=== PATIENT | male | born 1975 | race Caucasian/White ===

== ENCOUNTER 2020-04-27 18:45 | Inpatient (IN) | payer SELFPAY ==
[2020-04-27 19:17] VITALS: BMI 33.3
[2020-04-27] MEDS ORDERED: LORazepam 2 MG/ML SDV VIAL IVPUSH ONE (20:59)
[2020-04-27] MEDS ORDERED: LORazepam 2 MG/ML SDV VIAL ONE (21:11)
[2020-04-27 21:31] LABS: BASO % 1.1 % (0-2.0); EOS % 1.6 % (0-4.5); HEMATOCRIT 27.5 % (35.4-49); HEMOGLOBIN 8.7 GM/dL (11.7-16.9); LYMPH % 17.3 % (8-40); MCH 23.9 pg (25.7-33.7); MCHC 31.5 g/dl (32.0-35.9); MEAN CELL VOLUME 75.9 fl (80-96); MEAN PLT VOLUME 8.7 fl (7.5-11.1); MONO % 11.8 % (3.8-10.2); NEUT % 68.2 % (42.8-82.8); PLATELET COUNT 48 K/MM3 (134-434); RBC 3.62 M/mm3 (4.00-5.60); RDW 20.6 % (11.9-15.9); WHITE BLOOD COUNT 4.8 K/mm3 (4.0-10.0)
[2020-04-27 21:39] LABS: INR 1.38 (0.83-1.09); PROTHROMBIN TIME (PATIENT) 16.6 SEC (9.7-13.0)
[2020-04-27 21:56] LABS: CHLORIDE 101 mmol/L (98-107); SODIUM 136 mmol/L (136-145)
[2020-04-27 21:59] LABS: ALBUMIN 3.6 g/dl (3.4-5.0); CALCIUM 8.9 mg/dL (8.5-10.1); CO2 26 mmol/L (21-32)
[2020-04-27 22:00] LABS: BLOOD UREA NITROGEN 7.6 mg/dL (7-18); GLUCOSE,RANDOM 93 mg/dL (74-106)
[2020-04-27 22:03] LABS: CREATININE 0.8 mg/dL (0.55-1.3); SGOT/AST 136 U/L (15-37); SGPT/ALT 58 U/L (13-61)
[2020-04-27 22:04] LABS: BILIRUBIN,TOTAL 3.8 mg/dL (0.2-1); TOT PROT 8.2 g/dl (6.4-8.2)
[2020-04-27 22:05] LABS: ALK PHOS 92 U/L (45-117)
[2020-04-27 22:17] LABS: ANISOCYTOSIS 2+; MACROCYTOSIS 0; PLATELET ESTIMATE DECREASED; TARGET CELLS 1+
[2020-04-27 22:31] LABS: ANION GAP 9 MMOL/L (8-16)
[2020-04-27 22:32] LABS: POTASSIUM 2.8 mmol/L (3.5-5.1)
[2020-04-27] MEDS ORDERED: POTASSIUM CHLORIDE TABS 20 MEQ TABLET.ER (FP) PO ONE ×2 (22:33→22:35)
[2020-04-27] MEDS ORDERED: LACTATED RINGERS SOLUTION 1000 ML INFUS.BAG IV ONE (22:34)
[2020-04-28] MEDS ORDERED: LORazepam 2 MG/ML SDV VIAL IVPUSH ONE (00:02)
[2020-04-28] MEDS ORDERED: chlordiazePOXIDE HCL 25 MG CAPSULE PO ONE (00:10)
[2020-04-28] MEDS ORDERED: LORazepam 2 MG/ML SDV VIAL ONE (00:12)
[2020-04-28] MEDS ORDERED: chlordiazePOXIDE HCL 25 MG CAPSULE ONE ×2 (00:12→14:20)
[2020-04-28] MEDS ORDERED: POTASSIUM CHLORIDE TABS 10 MEQ TABLET.ER (FP) PO ONE (01:08)
[2020-04-28 01:09] LABS: MAGNESIUM 1.3 mg/dL (1.8-2.4)
[2020-04-28] MEDS ORDERED: MAGNESIUM SULF 50% (8.12 MEQ/2 ML-1 GM VIAL) IVPB ONE (01:10)
[2020-04-28] MEDS ORDERED: FOLIC ACID INJECTION - 1 MG, THIAMINE HCL 100 MG, MULTIVIT INJECTION ADULT 10 ML in SOD... IVPB ONE (01:11)
[2020-04-28] MEDS ORDERED: LORazepam 2 MG/ML SDV VIAL IVPUSH PRN (01:11)
[2020-04-28] MEDS ORDERED: THIAMINE HCL 200 MG/2 ML VIAL IVPB ONE (01:12)
[2020-04-28] MEDS ORDERED: POTASSIUM CHLORIDE TABS 20 MEQ TABLET.ER (FP) PO ONE ×2 (02:04→13:25)
[2020-04-28] MEDS ORDERED: THIAMINE HCL 200 MG/2 ML VIAL ONE (02:04)
[2020-04-28] MEDS ORDERED: KCL 10 MEQ IVPB 10 MEQ/100 ML INFUS.BAG IVPB ONE ×2 (02:04→03:45)
[2020-04-28] MEDS ORDERED: MAGNESIUM SULFATE IN WATER 2 GM/50 ML IVPB IVPB ONE ×3 (02:04→13:59)
[2020-04-28] MEDS: KCL 10 MEQ IVPB 10 MEQ/100 ML INFUS.BAG IVPB SCH ×2 (02:15→03:52)
[2020-04-28 11:12] LABS: EOS % 2.8 % (0-4.5); HEMATOCRIT 26.7 % (35.4-49); HEMOGLOBIN 8.4 GM/dL (11.7-16.9); LYMPH % 16.9 % (8-40); MCH 23.8 pg (25.7-33.7); MCHC 31.4 g/dl (32.0-35.9); MEAN CELL VOLUME 75.8 fl (80-96); MEAN PLT VOLUME 8.4 fl (7.5-11.1); MONO % 10.1 % (3.8-10.2); NEUT % 69.2 % (42.8-82.8); PLATELET COUNT 52 K/MM3 (134-434); RBC 3.53 M/mm3 (4.00-5.60); RDW 20.5 % (11.9-15.9); WHITE BLOOD COUNT 4.4 K/mm3 (4.0-10.0)
[2020-04-28 11:30] LABS: POTASSIUM 3.2 mmol/L (3.5-5.1)
[2020-04-28 11:35] LABS: BLOOD UREA NITROGEN 7.3 mg/dL (7-18)
[2020-04-28 11:37] LABS: PHOSPHOROUS 3.8 mg/dL (2.5-4.9)
[2020-04-28 11:38] LABS: CREATININE 0.7 mg/dL (0.55-1.3)
[2020-04-28 11:39] LABS: BILIRUBIN,TOTAL 3.9 mg/dL (0.2-1); MAGNESIUM 0.4 mg/dL (1.8-2.4); TOT PROT 7.7 g/dl (6.4-8.2)
[2020-04-28 12:00] LABS: ALBUMIN 3.4 g/dl (3.4-5.0); CALCIUM 8.6 mg/dL (8.5-10.1)
[2020-04-28] MEDS: FOLIC ACID 1 MG TABLET (FP) PO SCH (12:17)
[2020-04-28] MEDS: LACTATED RINGERS SOLUTION 1,000 ML/1,000 ML INFUS.BAG IV SCH (12:17)
[2020-04-28] MEDS: THIAMINE HCL 100 MG TABLET (FP) PO SCH (12:18)
[2020-04-28] MEDS ORDERED: THIAMINE HCL 100 MG TABLET (FP) ONE (12:26)
[2020-04-28] MEDS ORDERED: FOLIC ACID 1 MG TABLET (FP) ONE (12:27)
[2020-04-28] MEDS: POTASSIUM CHLORIDE TABS 20 MEQ TABLET.ER (FP) PO SCH ×2 (13:34→17:29)
[2020-04-28] MEDS: MAGNESIUM SULF 50% (8.12 MEQ/2 ML-1 GM VIAL) IVPB SCH ×2 (13:34→15:15)
[2020-04-28] MEDS: chlordiazePOXIDE HCL 25 MG CAPSULE PO PRN ×2 (14:26→21:16)
[2020-04-28] MEDS: LACTULOSE 20 GM/30 ML UDC (FOR ORAL USE ONLY) PO SCH (21:23)
[2020-04-28 22:01] LABS: POTASSIUM 3.8 mmol/L (3.5-5.1)
[2020-04-28 22:04] LABS: CALCIUM 8.1 mg/dL (8.5-10.1); MAGNESIUM 1.6 mg/dL (1.8-2.4)
[2020-04-28 22:06] LABS: CREATININE 0.8 mg/dL (0.55-1.3); PHOSPHOROUS 3.4 mg/dL (2.5-4.9)
[2020-04-29 03:01] LABS: URINE APPEARANCE CLEAR; URINE BILIRUBIN NEGATIVE (NEGATIVE); URINE COLOR YELLOW; URINE GLUCOSE (UA) NEGATIVE (NEGATIVE); URINE KETONE NEGATIVE (NEGATIVE); URINE LEUK ESTERASE NEGATIVE (NEGATIVE); URINE NITRITE NEGATIVE (NEGATIVE); URINE PROTEIN NEGATIVE (NEGATIVE)
[2020-04-29 04:13] LABS: COCAINE, UR NEGATIVE ng/ml (CUTOFF=300); METHADONE, UR NEGATIVE ng/ml (CUTOFF=300); OPIATES, URI NEGATIVE ng/ml (CUTOFF=300); URINE AMPHETAMINES NEGATIVE ng/ml (CUTOFF=500)
[2020-04-29 04:14] LABS: PHENCYCLIDINE,URINE NEGATIVE ng/ml (CUTOFF=25)
[2020-04-29 04:15] LABS: URINE BARBITURATES NEGATIVE ng/ml (CUTOFF=200)
[2020-04-29 04:28] LABS: URINE BENZODIAZEPINES POSITIVE ng/ml (CUTOFF=200)
[2020-04-29 08:48] LABS: BASO % 0.9 % (0-2.0); HEMATOCRIT 26.9 % (35.4-49); HEMOGLOBIN 8.5 GM/dL (11.7-16.9); LYMPH % 23.7 % (8-40); MCH 24.1 pg (25.7-33.7); MCHC 31.5 g/dl (32.0-35.9); MEAN CELL VOLUME 76.7 fl (80-96); MEAN PLT VOLUME 8.6 fl (7.5-11.1); MONO % 14.1 % (3.8-10.2); NEUT % 58.3 % (42.8-82.8); PLATELET COUNT 63 K/MM3 (134-434); RBC 3.51 M/mm3 (4.00-5.60); RDW 20.4 % (11.9-15.9); WHITE BLOOD COUNT 4.7 K/mm3 (4.0-10.0)
[2020-04-29 08:55] LABS: INR 1.38 (0.83-1.09); PROTHROMBIN TIME (PATIENT) 16.6 SEC (9.7-13.0)
[2020-04-29 09:17] LABS: CALCIUM 8.2 mg/dL (8.5-10.1)
[2020-04-29 09:18] LABS: ALBUMIN 3.3 g/dl (3.4-5.0); BLOOD UREA NITROGEN 10.7 mg/dL (7-18); MAGNESIUM 1.4 mg/dL (1.8-2.4)
[2020-04-29 09:21] LABS: CREATININE 0.7 mg/dL (0.55-1.3); PHOSPHOROUS 3.6 mg/dL (2.5-4.9)
[2020-04-29 09:22] LABS: BILIRUBIN,TOTAL 3.1 mg/dL (0.2-1); TOT PROT 7.6 g/dl (6.4-8.2)
[2020-04-29 09:23] LABS: POTASSIUM 3.5 mmol/L (3.5-5.1)
[2020-04-29] MEDS ORDERED: LACTATED RINGERS SOLUTION 1,000 ML/1,000 ML INFUS.BAG IV SCH (10:00)
[2020-04-29] MEDS ORDERED: PT OWN MED DRAWER 7, Y5N ONE ×2 (12:04→15:12)
[2020-04-29] MEDS ORDERED: MAGNESIUM OXIDE 400 MG TABLET (FP) PO ONE (14:10)
[2020-04-29] MEDS: LACTULOSE 20 GM/30 ML UDC (FOR ORAL USE ONLY) PO SCH ×2 (15:14→21:54)
[2020-04-29] MEDS: THIAMINE HCL 100 MG TABLET (FP) PO SCH (15:14)
[2020-04-29] MEDS: LACTATED RINGERS SOLUTION 1,000 ML/1,000 ML INFUS.BAG IV SCH (15:15)
[2020-04-29] MEDS: FOLIC ACID 1 MG TABLET (FP) PO SCH (15:15)
[2020-04-29] MEDS ORDERED: BISACODYL 5 MG TABLET.DR (FP) PO ONE (16:27)
[2020-04-29] MEDS ORDERED: PEG 3350/NA SULF BICARB CL/KCL 4000 ML SOLN.RECON PO ONE (16:29)
[2020-04-29] MEDS ORDERED: IRON SUCROSE INJECTION 200 MG in SODIUM CHLORIDE 90 ML IVPB ONE (18:30)
[2020-04-29] MEDS: MAGNESIUM OXIDE 400 MG TABLET (FP) PO SCH (21:54)
[2020-04-29] MEDS: FERROUS SO4 325 MG TABLET (FP) PO SCH (21:55)
[2020-04-30 05:22] LABS: HEP B CORE AB, TOT Negative (Negative)
[2020-04-30 08:30] LABS: BASO % 1.2 % (0-2.0); EOS % 2.3 % (0-4.5); HEMATOCRIT 27.9 % (35.4-49); HEMOGLOBIN 8.8 GM/dL (11.7-16.9); LYMPH % 21.5 % (8-40); MCH 24.3 pg (25.7-33.7); MCHC 31.7 g/dl (32.0-35.9); MEAN CELL VOLUME 76.7 fl (80-96); MEAN PLT VOLUME 8.4 fl (7.5-11.1); MONO % 13.6 % (3.8-10.2); NEUT % 61.4 % (42.8-82.8); PLATELET COUNT 78 K/MM3 (134-434); RBC 3.64 M/mm3 (4.00-5.60); WHITE BLOOD COUNT 4.7 K/mm3 (4.0-10.0)
[2020-04-30 08:53] LABS: POTASSIUM 3.4 mmol/L (3.5-5.1)
[2020-04-30 09:03] LABS: ALBUMIN 3.4 g/dl (3.4-5.0); BLOOD UREA NITROGEN 11.7 mg/dL (7-18); CALCIUM 8.3 mg/dL (8.5-10.1)
[2020-04-30 09:04] LABS: MAGNESIUM 1.2 mg/dL (1.8-2.4)
[2020-04-30 09:06] LABS: CREATININE 0.7 mg/dL (0.55-1.3)
[2020-04-30 09:07] LABS: PHOSPHOROUS 3.7 mg/dL (2.5-4.9)
[2020-04-30 09:08] LABS: BILIRUBIN,TOTAL 2.9 mg/dL (0.2-1); TOT PROT 7.6 g/dl (6.4-8.2)
[2020-04-30] MEDS ORDERED: POTASSIUM CHLORIDE TABS 20 MEQ TABLET.ER (FP) PO ONE (10:30)
[2020-04-30] MEDS: FOLIC ACID 1 MG TABLET (FP) PO SCH (12:55)
[2020-04-30] MEDS: FERROUS SO4 325 MG TABLET (FP) PO SCH ×2 (12:55→21:53)
[2020-04-30] MEDS: THIAMINE HCL 100 MG TABLET (FP) PO SCH (12:55)
[2020-04-30] MEDS: LACTULOSE 20 GM/30 ML UDC (FOR ORAL USE ONLY) PO SCH ×2 (12:56→21:53)
[2020-04-30] MEDS: SODIUM CHLORIDE 1,000 ML IV SCH (12:56)
[2020-04-30] MEDS: MAGNESIUM OXIDE 400 MG TABLET (FP) PO SCH ×2 (12:56→21:53)
[2020-04-30] MEDS ORDERED: MAGNESIUM SULF 50% (8.12 MEQ/2 ML-1 GM VIAL) IVPB ONE (19:17)
[2020-04-30 20:07] LABS: HEP B CORE AB, TOT Negative (Negative)
[2020-05-01] MEDS: SODIUM CHLORIDE 1,000 ML IV SCH ×3 (00:44→21:23)
[2020-05-01 08:05] LABS: HEMATOCRIT 27.5 % (35.4-49); HEMOGLOBIN 8.7 GM/dL (11.7-16.9); MCH 24.5 pg (25.7-33.7); MCHC 31.8 g/dl (32.0-35.9); MEAN CELL VOLUME 77.2 fl (80-96); MEAN PLT VOLUME 8.4 fl (7.5-11.1); PLATELET COUNT 93 K/MM3 (134-434); RBC 3.56 M/mm3 (4.00-5.60); RDW 20.8 % (11.9-15.9); WHITE BLOOD COUNT 5.1 K/mm3 (4.0-10.0)
[2020-05-01 08:21] LABS: CHLORIDE 102 mmol/L (98-107); POTASSIUM 3.4 mmol/L (3.5-5.1); SODIUM 135 mmol/L (136-145)
[2020-05-01 08:43] LABS: ANION GAP 7 MMOL/L (8-16); BLOOD UREA NITROGEN 9.2 mg/dL (7-18); CALCIUM 7.9 mg/dL (8.5-10.1); CO2 26 mmol/L (21-32); GLUCOSE,RANDOM 81 mg/dL (74-106)
[2020-05-01 08:44] LABS: ALBUMIN 3.3 g/dl (3.4-5.0)
[2020-05-01 08:46] LABS: CREATININE 0.7 mg/dL (0.55-1.3); SGOT/AST 131 U/L (15-37)
[2020-05-01 08:48] LABS: BILIRUBIN,TOTAL 2.3 mg/dL (0.2-1); SGPT/ALT 62 U/L (13-61); TOT PROT 7.5 g/dl (6.4-8.2)
[2020-05-01 08:49] LABS: ALK PHOS 85 U/L (45-117)
[2020-05-01] MEDS ORDERED: POTASSIUM CHLORIDE TABS 20 MEQ TABLET.ER (FP) PO ONE (09:30)
[2020-05-01] MEDS: LACTULOSE 20 GM/30 ML UDC (FOR ORAL USE ONLY) PO SCH ×2 (11:19→21:20)
[2020-05-01] MEDS: FERROUS SO4 325 MG TABLET (FP) PO SCH ×2 (11:19→21:20)
[2020-05-01] MEDS: MAGNESIUM OXIDE 400 MG TABLET (FP) PO SCH ×2 (11:19→21:20)
[2020-05-01] MEDS: THIAMINE HCL 100 MG TABLET (FP) PO SCH (11:19)
[2020-05-01] MEDS: FOLIC ACID 1 MG TABLET (FP) PO SCH (11:19)
[2020-05-02 07:34] LABS: HEMOGLOBIN 9.1 GM/dL (11.7-16.9); MCH 24.4 pg (25.7-33.7); MCHC 31.4 g/dl (32.0-35.9); MEAN CELL VOLUME 77.7 fl (80-96); MEAN PLT VOLUME 9.1 fl (7.5-11.1); PLATELET COUNT 103 K/MM3 (134-434); RBC 3.73 M/mm3 (4.00-5.60); WHITE BLOOD COUNT 5.5 K/mm3 (4.0-10.0)
[2020-05-02 07:46] LABS: CHLORIDE 106 mmol/L (98-107); POTASSIUM 3.9 mmol/L (3.5-5.1); SODIUM 139 mmol/L (136-145)
[2020-05-02 07:51] LABS: CALCIUM 8.4 mg/dL (8.5-10.1)
[2020-05-02 07:52] LABS: ALBUMIN 3.6 g/dl (3.4-5.0); ANION GAP 7 MMOL/L (8-16); CO2 27 mmol/L (21-32); GLUCOSE,RANDOM 78 mg/dL (74-106)
[2020-05-02 07:55] LABS: CREATININE 0.7 mg/dL (0.55-1.3); SGOT/AST 176 U/L (15-37); SGPT/ALT 100 U/L (13-61)
[2020-05-02 07:56] LABS: BILIRUBIN,TOTAL 1.8 mg/dL (0.2-1)
[2020-05-02 07:57] LABS: ALK PHOS 94 U/L (45-117)
[2020-05-02 08:47] VITALS: BP 139/92; PULSE 86; TEMP 98.6
[2020-05-02] MEDS: FOLIC ACID 1 MG TABLET (FP) PO SCH (09:31)
[2020-05-02] MEDS: LACTULOSE 20 GM/30 ML UDC (FOR ORAL USE ONLY) PO SCH (09:31)
[2020-05-02] MEDS: FERROUS SO4 325 MG TABLET (FP) PO SCH (09:31)
[2020-05-02] MEDS: MAGNESIUM OXIDE 400 MG TABLET (FP) PO SCH (09:31)
[2020-05-02] MEDS: THIAMINE HCL 100 MG TABLET (FP) PO SCH (09:31)
== END 2020-05-02 15:22 | disposition home or self-care (01) | DRG 279 ==
LOC: JER 18:45 → JERBED 23:45 → J4W 04-28 16:17
PROVIDERS: ADMIT Internal Medicine; ATTEND Internal Medicine
PROC: HZ2ZZZZ Detoxification Services for Substance Abuse Treatment (ICD-10-PCS; principal; 2020-04-28)
PROC: 0DB78ZX Excision of Stomach, Pylorus, Via Natural or Artificial Opening Endoscopic, Diagnostic (ICD-10-PCS; 2020-04-29)
PROC: 0DBN8ZX Excision of Sigmoid Colon, Via Natural or Artificial Opening Endoscopic, Diagnostic (ICD-10-PCS; 2020-04-30)
DX: K72.00 Acute and subacute hepatic failure without coma (principal); F10.230 Alcohol dependence with withdrawal, uncomplicated; E87.6 Hypokalemia; D64.9 Anemia, unspecified; E66.9 Obesity, unspecified; Z68.33 Body mass index [BMI] 33.0-33.9, adult; I10 Essential (primary) hypertension; M62.82 Rhabdomyolysis; D69.6 Thrombocytopenia, unspecified; D50.0 Iron deficiency anemia secondary to blood loss (chronic); K64.8 Other hemorrhoids; I85.10 Secondary esophageal varices without bleeding; K29.70 Gastritis, unspecified, without bleeding
CPT/HCPCS: 36415; 70450-TC; 71046-TC-FY; 72125-TC; 76705-TC; 80048; 80053; 80074; 80076; 80307; 81003; 82140; 82248; 82550; 82553; 82728; 83540; 83550; 83735; 84100; 84484; 85025; 85027; 85045; 85610; 85730; 86704; 86705; 86706; 86707; 86708; 86709; 86803; 87086; 87340; 88305-TC; 93005; 93010; 93971; 99285-25; C9803; J1756; U0003

== ENCOUNTER 2024-03-20 16:55 | Inpatient (IN) | payer OTHER ==
[2024-03-20 17:03] VITALS: BMI 23.0
[2024-03-20] MEDS ORDERED: LIDOCAINE 4% PATCH TP ONE (18:11)
[2024-03-20] MEDS ORDERED: PIPERACILLIN/TAZOB 4.5 GM 4.5 GM/100 ML BAG IVPB ONE (18:11)
[2024-03-20] MEDS: PIPERACILLIN/TAZOB 4.5 GM 4.5 GM in DEXTROSE 5%-WATER 100 ML IVPB ONE (18:15)
[2024-03-20] MEDS: LIDOCAINE 4% PATCH TP ONE (18:20)
[2024-03-20 18:31] LABS: BASO % 0.3 % (0-2.0); HEMATOCRIT 26.3 % (35.4-49); HEMOGLOBIN 9.1 GM/dL (11.7-16.9); LYMPH % 15.7 % (8-40); MCH 33.6 pg (25.7-33.7); MCHC 34.5 g/dl (32.0-35.9); MEAN CELL VOLUME 97.5 fl (80-96); MEAN PLT VOLUME 7.2 fl (7.5-11.1); MONO % 12.3 % (3.8-10.2); NEUT % 70.7 % (42.8-82.8); PLATELET COUNT 126 10^3/uL (134-434); RDW 15.2 % (11.9-15.9); WHITE BLOOD COUNT 4.7 K/mm3 (4.0-10.0)
[2024-03-20 18:57] LABS: CHLORIDE 108 mmol/L (98-107); POTASSIUM 3.3 mmol/L (3.5-5.1); SODIUM 140 mmol/L (136-145)
[2024-03-20 18:59] LABS: CALCIUM 8.1 mg/dL (8.5-10.1)
[2024-03-20 19:00] LABS: ALBUMIN 2.3 g/dl (3.4-5.0); ANION GAP 6 mmol/L (4-13); BLOOD UREA NITROGEN 8.3 mg/dL (7-18); CO2 27 mmol/L (21-32); GLUCOSE,RANDOM 118 mg/dL (74-106); MAGNESIUM 1.5 mg/dL (1.8-2.4)
[2024-03-20 19:03] LABS: CREATININE 0.6 mg/dL (0.55-1.3); SGOT/AST 67 U/L (15-37); SGPT/ALT 39 U/L (13-61)
[2024-03-20] MEDS ORDERED: VANCOMYCIN 1 GM PREMIX (F) 1 GM/200 ML BAG ONE (19:03)
[2024-03-20 19:05] LABS: BILIRUBIN,TOTAL 1.7 mg/dL (0.2-1); TOT PROT 6.9 g/dl (6.4-8.2)
[2024-03-20 19:06] LABS: ALK PHOS 96 U/L (45-117)
[2024-03-20] MEDS: VANCOMYCIN 1 GM PREMIX (F) 1 GM/200 ML BAG IVPB ONE (19:06)
[2024-03-20 19:16] LABS: INR 1.27 (0.83-1.09); PROTHROMBIN TIME (PATIENT) 14.3 SEC (9.7-13.0)
[2024-03-20 19:18] LABS: ACTIVATED PTT 35.2 SECONDS (25.2-36.5)
[2024-03-20] MEDS ORDERED: LACTULOSE 20 GM/30 ML UDC (FOR ORAL USE ONLY) ONE (19:43)
[2024-03-20] MEDS: LACTULOSE 20 GM/30 ML UDC (FOR ORAL USE ONLY) PO ONE (20:21)
[2024-03-21] MEDS ORDERED: MAGNESIUM SULFATE IN WATER 2 GM/50 ML IVPB IVPB ONE (01:59)
[2024-03-21] MEDS ORDERED: PIPERACILLIN/TAZOB 3.375 GM 3.375 GM/50 ML BAG IVPB ONE (02:00)
[2024-03-21] MEDS ORDERED: FUROSEMIDE 40 MG/4 ML INJECTABLE VIAL ONE (02:00)
[2024-03-21] MEDS: PIPERACILLIN/TAZOB 3.375 GM 3.375 GM in DEXTROSE 5%-WATER - 50 ML IVPB SCH ×2 (02:11→08:42)
[2024-03-21] MEDS: MAGNESIUM SULF 50% (8.12 MEQ/2 ML-1 GM VIAL) IVPB ONE (02:11)
[2024-03-21] MEDS: FUROSEMIDE 40 MG/4 ML INJECTABLE VIAL IVPUSH ONE (02:11)
[2024-03-21 02:30] LABS: COCAINE, UR NEGATIVE (NEGATIVE); METHADONE, UR NEGATIVE (NEGATIVE); URINE AMPHETAMINES NEGATIVE (NEGATIVE); URINE BARBITURATES NEGATIVE (NEGATIVE); URINE BENZODIAZEPINES NEGATIVE (NEGATIVE)
[2024-03-21 02:31] LABS: PHENCYCLIDINE,URINE NEGATIVE (NEGATIVE)
[2024-03-21 03:01] LABS: OPIATES, URI NEGATIVE (NEGATIVE)
[2024-03-21] MEDS: FUROSEMIDE 40 MG/4 ML INJECTABLE VIAL IVPUSH SCH (07:06)
[2024-03-21] MEDS: LIDOCAINE PATCH REMOVAL MC SCH (07:07)
[2024-03-21] MEDS: LACTULOSE 20 GM/30 ML UDC (FOR ORAL USE ONLY) PO SCH ×2 (07:07→11:03)
[2024-03-21] MEDS: VANCOMYCIN 1,000 MG in DEXTROSE 5%-WATER - 250 ML IVPB ONE (07:47)
[2024-03-21] MEDS: POTASSIUM CHLORIDE ORAL LIQUID 20 MEQ/15 ML PO ONE (08:26)
[2024-03-21] MEDS ORDERED: LACTULOSE 20 GM/30 ML UDC (FOR ORAL USE ONLY) PO SCH ×2 (08:37→10:00)
[2024-03-21 09:52] VITALS: RESP 18
[2024-03-21] MEDS ORDERED: amLODIPine BESYLATE 2.5 MG TABLET (FP) PO SCH (10:00)
[2024-03-21] MEDS ORDERED: ENOXAPARIN NA (PORCINE) 40 MG/0.4 ML DISP.SYRIN SQ SCH (10:00)
[2024-03-21 10:11] LABS: BASO % 0.4 % (0-2.0); EOS % 1.4 % (0-4.5); HEMATOCRIT 25.4 % (35.4-49); HEMOGLOBIN 8.7 GM/dL (11.7-16.9); MCH 33.7 pg (25.7-33.7); MCHC 34.4 g/dl (32.0-35.9); MEAN CELL VOLUME 97.9 fl (80-96); MEAN PLT VOLUME 7.1 fl (7.5-11.1); MONO % 13.1 % (3.8-10.2); NEUT % 63.1 % (42.8-82.8); PLATELET COUNT 152 10^3/uL (134-434); RBC 2.59 M/mm3 (4.00-5.60); RDW 15.8 % (11.9-15.9); WHITE BLOOD COUNT 4.6 K/mm3 (4.0-10.0)
[2024-03-21 10:31] LABS: POTASSIUM 3.5 mmol/L (3.5-5.1)
[2024-03-21 10:40] LABS: ALBUMIN 2.2 g/dl (3.4-5.0); BLOOD UREA NITROGEN 7.3 mg/dL (7-18); CALCIUM 8.4 mg/dL (8.5-10.1)
[2024-03-21 10:43] LABS: CREATININE 0.7 mg/dL (0.55-1.3)
[2024-03-21 10:44] LABS: BILIRUBIN,TOTAL 2.1 mg/dL (0.2-1); TOT PROT 6.7 g/dl (6.4-8.2)
[2024-03-21] MEDS: CEFAZOLIN 1 GM/D5W 1 GM/50 ML BAG IVPB SCH (10:47)
[2024-03-21] MEDS: FERROUS SO4 325 MG TABLET (FP) PO SCH (11:03)
[2024-03-21] MEDS: SPIRONOLACTONE 25 MG TABLET PO SCH (11:03)
[2024-03-21] MEDS: FUROSEMIDE 20 MG TABLET (FP) PO SCH (11:03)
[2024-03-21] MEDS: PANTOPRAZOLE 20 MG TABLET PO SCH (11:03)
[2024-03-21] MEDS: DOXYCYCLINE INJECTION 100 MG in DEXTROSE 5%-WATER 100 ML IVPB SCH (12:23)
[2024-03-21 14:26] LABS: HIV INTERPRETATION NEGATIVE (NEGATIVE)
[2024-03-21 14:35] LABS: N-TERMINAL BNP 365.6 pg/ml (5-125)
[2024-03-21 15:46] LABS: BILIRUBIN,DIRECT 0.8 mg/dL (0.0-0.2)
[2024-03-21] MEDS: PIPERACILLIN/TAZOB 3.375 GM 3.375 GM/50 ML BAG IVPB SCH (18:30)
[2024-03-21] MEDS: DOXYCYCLINE HYCLATE 100 MG CAPSULE PO SCH (18:30)
[2024-03-22 08:51] LABS: BASO % 0.4 % (0-2.0); EOS % 1.4 % (0-4.5); HEMOGLOBIN 8.6 GM/dL (11.7-16.9); LYMPH % 22.8 % (8-40); MCH 34.1 pg (25.7-33.7); MCHC 34.5 g/dl (32.0-35.9); MEAN CELL VOLUME 98.8 fl (80-96); MEAN PLT VOLUME 7.2 fl (7.5-11.1); NEUT % 65.4 % (42.8-82.8); PLATELET COUNT 135 10^3/uL (134-434); RBC 2.53 M/mm3 (4.00-5.60); RDW 15.4 % (11.9-15.9); WHITE BLOOD COUNT 3.9 K/mm3 (4.0-10.0)
[2024-03-22 09:17] LABS: POTASSIUM 3.5 mmol/L (3.5-5.1)
[2024-03-22 09:22] LABS: BLOOD UREA NITROGEN 7.9 mg/dL (7-18); CALCIUM 7.8 mg/dL (8.5-10.1); MAGNESIUM 1.6 mg/dL (1.8-2.4)
[2024-03-22 09:26] LABS: CREATININE 0.6 mg/dL (0.55-1.3); PHOSPHOROUS 3.1 mg/dL (2.5-4.9)
[2024-03-22 09:27] LABS: BILIRUBIN,TOTAL 1.8 mg/dL (0.2-1); TOT PROT 6.1 g/dl (6.4-8.2)
[2024-03-22 09:35] LABS: INR 1.41 (0.83-1.09); PROTHROMBIN TIME (PATIENT) 16.1 SEC (9.7-13.0)
[2024-03-22] MEDS: MAGNESIUM OXIDE 400 MG TABLET (FP) PO ONE (10:28)
[2024-03-22] MEDS: IBUPROFEN 400 MG TABLET (FP) PO PRN (12:02)
[2024-03-22 18:06] VITALS: BP 157/70; PULSE 65; TEMP 97.9
== END 2024-03-22 19:08 | disposition home or self-care (01) | DRG 383 ==
LOC: JER 16:55 → JERBED 23:55 → J5S 03-21 06:43 → OBSVTOIN 03-21 10:21
PROVIDERS: ADMIT Internal Medicine; ATTEND Internal Medicine
DX: L03.116 Cellulitis of left lower limb (principal); I10 Essential (primary) hypertension; K70.30 Alcoholic cirrhosis of liver without ascites; R60.0 Localized edema
CPT/HCPCS: 36415; 70450-TC; 71045-TC-FY; 73610-TC-LT-FY; 76700-TC; 80053; 80307; 82140; 82248; 82728; 83036; 83540; 83550; 83690; 83735; 83880; 84100; 85025; 85045; 85610; 85651; 85730; 86140; 86705; 86707; 86708; 87081; 87340; 87350; 87389; 93005; 93010; 93306-TC; 93970-TC; 97116-GP; 97161-GP; 99285-25; G0378